=== PATIENT | male | born 1935 | race Caucasian/White ===

== ENCOUNTER 2018-04-23 10:20 | Observation (INO) | payer OTHER ==
[~2018-04-23] VITALS: Ht 177.8 cm; Wt 93.4 kg
[~2018-04-23 10:20] MED LIST: ACTOS30 MG PO; CIPRO500 MG PO; FLOMAX0.4 MG PO; LISINOPRIL10 MG PO; METFORMIN HCL1000 MG PO; PERCOCET 5/31 TABLET PO; PRINIVIL5 MG PO; VITAMIN D31000 UNIT PO; VYTORIN 10-201 EACH PO; Vicodin,Lortab 5/500 PO; ZESTRIL,PRINIVI40 MG PO
[2018-04-23 11:32] LABS: BASOPHIL (%) 0.3 % (0-1); EOSINOPHIL (%) 1.9 % (0-5); EOSINOPHIL COUNT 0.2 K/uL (0-0.3); HEMATOCRIT 37.4 % (38.0-50.0); HEMOGLOBIN 12.4 G/DL (12.5-16.6); IMMATURE GRANULOCYTE (%) 0.4 % (0.0-0.7); LYMPHOCYTE (%) 13.2 % (15-42); MCH 30.1 PG (29.0-34.0); MCHC 33.2 G/DL (30.0-36.0); MCV 90.8 FL (86-99); MONOCYTE (%) 7.1 % (3-12); MONOCYTE COUNT 0.6 K/uL (0-0.8); NEUTROPHIL (%) 77.1 % (45-76); PLATELET COUNT 169 K/uL (156-360); RBC DIS.WIDTH-CV 13.8 % (11.8-14.6); RBC DIS.WIDTH-SD 45.9 % (39-53); RED BLOOD COUNT 4.12 M/uL (4.00-5.50); WHITE BLOOD COUNT 7.8 K/uL (4.1-10.2)
[2018-04-23 11:35] LABS: INTER. NORMALIZED RATIO 1.1
[2018-04-23 11:38] LABS: PTT 29.2 SEC (25-37)
[2018-04-23 11:45] LABS: CHLORIDE 105 mEq/L (99-109); POTASSIUM 4.6 mEq/L (3.7-5.4); SODIUM 138 mEq/L (136-147)
[2018-04-23 11:46] LABS: MAGNESIUM 2.2 mg/dL (1.3-2.7)
[2018-04-23 11:47] LABS: GLUCOSE 268 mg/dL (70-99)
[2018-04-23 11:50] LABS: TROP-I INTERPRETATION NEGATIVE; TROPONIN-I < 0.01 ng/mL (0.0-0.30)
[2018-04-23 11:51] LABS: CREATININE 2.5 mg/dL (0.6-1.3); GFR ESTIMATE (CALCULATED) 26 mL/min/ (58.99-99999)
[2018-04-23 11:52] LABS: UREA NITROGEN (BUN) 33 mg/dL (9-23)
[2018-04-23 14:47] LABS: HDL CHOLESTEROL 39 MG/DL (Desirable>=40); LDL CHOLESTEROL 43 mg/dL (Desirable<100); NON-HDL CHOLESTEROL 68 mg/dL (Desirable<160); TOTAL CHOLESTEROL 107 mg/dL (Desirable<200); TRIGLYCERIDES 125 MG/DL (Normal: <150)
[2018-04-23 14:50] VITALS: BP 160/78
[2018-04-23] MEDS ORDERED: TRADJENTA5 MG PO (16:13)
[2018-04-23] MEDS ORDERED: TRULICITY0.75 MG/0. SC (16:13)
[2018-04-23] MEDS ORDERED: LIPITOR10 MG PO (16:14)
[2018-04-23 17:48] LABS: TROP-I INTERPRETATION NEGATIVE; TROPONIN-I 0.06 ng/mL (0.0-0.30)
[2018-04-23 19:45] VITALS: BP 131/66
[2018-04-23 23:24] LABS: TROP-I INTERPRETATION NEGATIVE; TROPONIN-I 0.08 ng/mL (0.0-0.30)
[2018-04-23 23:38] VITALS: BP 129/64
[2018-04-24 04:13] VITALS: BP 144/76
[2018-04-24 07:00] LABS: CHLORIDE 105 MEQ/L (99-109); CREATININE 1.8 MG/DL (0.6-1.3); GFR ESTIMATE (CALCULATED) 38 mL/min/ (58.99-99999); GLUCOSE 117 mg/dL (70-99); POTASSIUM 4.8 MEQ/L (3.7-5.4); SODIUM 138 MEQ/L (136-147); UREA NITROGEN (BUN) 31 mg/dL (9-23)
[2018-04-24 07:59] VITALS: BP 148/77
[2018-04-24 09:57] LABS: HEMOGLOBIN A1c (GLYCOHEMOGLOB) 6.7 % (Below 5.7)
[2018-04-24] MEDS ORDERED: LOPRESSOR25 MG PO (10:57)
[2018-04-24] MEDS ORDERED: ASPIR 8181 M1 PO (10:58)
[2018-04-24 11:59] VITALS: BP 122/63
[2018-04-24 15:54] VITALS: BP 115/64
== END 2018-04-24 16:56 | disposition home or self-care (01) ==
LOC: EME 10:20 → EDOF 13:45 → ENRESERV 13:54 → 4SOUTH 14:32
PROVIDERS: Emergency Medicine; Hospitalist
DX: I47.1 Supraventricular tachycardia (principal); R07.9 Chest pain, unspecified; I95.9 Hypotension, unspecified; N17.9 Acute kidney failure, unspecified; I12.9 Hypertensive chronic kidney disease with stage 1 through stage 4 chronic kidney disease, or unspecified chronic kidney disease; N18.3 Chronic kidney disease, stage 3 (moderate); E11.22 Type 2 diabetes mellitus with diabetic chronic kidney disease; Z85.46 Personal history of malignant neoplasm of prostate; Z92.3 Personal history of irradiation; E78.5 Hyperlipidemia, unspecified; Z96.649 Presence of unspecified artificial hip joint; Z90.49 Acquired absence of other specified parts of digestive tract; Z80.0 Family history of malignant neoplasm of digestive organs
CPT/HCPCS: 71045; 71250; 80048; 80061; 82948; 83036; 83735; 84484; 85025; 85610; 85730; 93005; 99281; 99284; G0378; J0153; J1650; J7030; S0028